=== PATIENT | male | born 1960 | race Caucasian/White ===

== ENCOUNTER 2024-11-26 10:42 | Emergency (ER) | payer OTHER ==
[2024-11-26 10:46] VITALS: BP 138/79; PULSE 73; RESP 18; TEMP 97.4; BMI 32.3
[2024-11-26] MEDS ORDERED: guaiFENesin/D-METHORPHAN HB 10 ML UNIT-DOSE CUPS ONE (11:32)
[2024-11-26] MEDS: ALBUTEROL SO4 2.5/IPRATROPIUM 0.5 INH SOL 3 ML VIAL.NEB. NEB SCH (11:56)
[2024-11-26] MEDS: guaiFENesin/D-METHORPHAN HB 10 ML UNIT-DOSE CUPS PO ONE (11:56)
[2024-11-26 11:59] LABS: ABSOLUTE IMMATURE GRANULOCYTES 0.01 x10^3/uL (0.0-0.031); BASOPHILS # 0.03 x10^3/uL (0.01-0.08); EOSINOPHIL % 7.9 % (0.8-7.0); EOSINOPHILS # 0.37 x10^3/uL (0.04-0.54); HEMATOCRIT 45.6 % (40.1-51.0); HEMOGLOBIN 15.4 g/dL (13.7-17.5); MCHC 33.8 g/dl (32.3-36.5); MEAN CELL VOLUME 82.3 fl (79.0-92.2); MONOCYTE # 0.37 x10^3/uL (0.30-0.82); MONOCYTE % 7.9 % (5.3-12.2); PLATELET COUNT 172 x10^3/uL (163-337); RDW 13.1 % (12.2-16.4)
[2024-11-26 12:35] LABS: ALBUMIN 3.8 g/dl (3.4-5.0); CALCIUM 9.1 mg/dL (8.5-10.1)
[2024-11-26 12:37] LABS: BLOOD UREA NITROGEN 9.4 mg/dL (7-18)
[2024-11-26 12:40] LABS: CREATININE 0.9 mg/dL (0.55-1.3)
[2024-11-26 12:41] LABS: BILIRUBIN,TOTAL 0.7 mg/dL (0.2-1); TOT PROT 7.4 g/dl (6.4-8.2)
[2024-11-26 12:45] LABS: N-TERMINAL BNP 41.5 pg/ml (5-125)
[2024-11-26] MEDS ORDERED: POTASSIUM CHLORIDE ORAL LIQUID 20 MEQ/15 ML ONE (13:09)
[2024-11-26] MEDS: POTASSIUM CHLORIDE ORAL LIQUID 20 MEQ/15 ML PO ONE (13:13)
[2024-11-26 13:55] LABS: MAGNESIUM 2.4 mg/dL (1.8-2.4)
[2024-11-26] MEDS ORDERED: AZITHROMYCIN 500 MG TABLET ONE (13:56)
[2024-11-26] MEDS ORDERED: MAGNESIUM 1GM/D5W - 1 GM/100 ML IVPB IVPB ONE (13:56)
[2024-11-26] MEDS: AZITHROMYCIN 250 MG TABLET PO ONE (14:04)
[2024-11-26] MEDS: MAGNESIUM 1GM/D5W - 1 GM/100 ML IVPB IVPB ONE (14:04)
== END 2024-11-26 14:53 | disposition home or self-care (01) ==
LOC: JER 10:42
PROC: 3E033GC Introduction of Other Therapeutic Substance into Peripheral Vein, Percutaneous Approach (ICD-10-PCS; principal; 2024-11-26)
PROC: 3E0F7GC Introduction of Other Therapeutic Substance into Respiratory Tract, Via Natural or Artificial Opening (ICD-10-PCS; 2024-11-26)
DX: R05.9 Cough, unspecified (principal); B34.9 Viral infection, unspecified; R06.02 Shortness of breath; R09.81 Nasal congestion
CPT/HCPCS: 0241U-QW; 36415; 71046-TC-FY; 80053; 83735; 83880; 84484; 85025; 93005; 93010; 99285-25